=== PATIENT | female | born 1980 ===

== ENCOUNTER 2017-03-19 15:53 | Emergency (ER) | payer SELFPAY ==
[2017-03-19 16:32] VITALS: BP 120/79; PULSE 112; RESP 14; TEMP 100.1; O2SAT 100
--- NOTE | 2017-03-19 16:41 | C.PDOC ---
History Of Present Illness 36 year old female presents to the ER with a complaint of sinus congestion, runny nose, fever T-max 103, and nonproductive cough for the past 3 days. Patient also reports having nausea and vomiting that has now resolved. Denies other associated symptoms. SINUS DYLAN, RUNNY NOSE, FEVER RETURN TO [employer] COUGH X 3 DAYS. TM 103. +NV, NOW RESOLVED. DENIES OTHER ASSOC SX EXAM NARD HEENT +SINUS DYLAN CLEAR RHINORRHEA LUNGS CTA B/L NO W/R/R REMAINDER NEG Time Seen by Provider: 03/19/17 16:35 Chief Complaint (Nursing): Fever History Per: Patient History/Exam Limitations: no limitations Onset/Duration Of Symptoms: Days Current Symptoms Are (Timing): Still Present Location Of Pain: None Sick Contacts (Context): None Associated Symptoms: Fever, Cough, Sinus Drainage, Nasal Congestion, Nausea, Vomiting. denies: Sputum Ear Symptoms: Bilateral: None Recent travel outside of the [place]: No Past Medical History Reviewed: Historical Data, Nursing Documentation, Vital Signs Vital Signs: Last Vital Signs Temp 100.1 F H 03/19/17 16:29 Pulse 112 H 03/19/17 16:29 Resp 14 03/19/17 16:29 BP 120/79 03/19/17 16:29 Pulse Ox 100 03/19/17 16:41 Family History: States: Unknown Family Hx - Social History Hx Alcohol Use: No Hx Substance Use: No - Immunization History Hx Influenza Vaccination: No Hx Pneumococcal Vaccination: No Review Of Systems Constitutional: Positive for: Fever ENT: Positive for: Nose Discharge, Nose Congestion. Negative for: Ear Pain, Ear Discharge, Throat Pain Respiratory: Positive for: Cough. Negative for: Sputum Gastrointestinal: Positive for: Nausea, Vomiting. Negative for: Abdominal Pain Physical Exam - Physical Exam Appears: Non-toxic, No Acute Distress Skin: Normal Color, Warm, Dry Head: Atraumatic, Normacephalic Eye(s): bilateral: Normal Inspection Ear(s): Bilateral: Normal Nose: Discharge (Clear), Other (Positive sinus congestion) Oral Mucosa: Moist Throat: Normal, No Erythema, No Exudate Neck: Normal, Supple Chest: Symmetrical, No Tenderness Cardiovascular: Rhythm Regular Respiratory: Normal Breath Sounds, No Rales, No Rhonchi, No Wheezing Neurological/Psych: Oriented x3, Normal Speech ED Course And Treatment O2 Sat by Pulse Oximetry: 100 (Room air) Pulse Ox Interpretation: Normal Disposition Counseled Patient/Family Regarding: Diagnosis, Need For Followup, Rx Given - Disposition Referrals: YOUR,PMD [Other] Disposition: HOME/ ROUTINE Disposition Time: 16:40 Condition: GOOD Prescriptions: Ondansetron [Zofran Odt] 4 mg PO TID PRN #9 odt PRN Reason: Nausea/Vomiting Instructions: Upper Respiratory Infection (ED), Rhinosinusitis (ED) Forms: [employer] (Czech), Work Excuse - Clinical Impression Clinical Impression: Upper respiratory infection, viral - Scribe Statement The provider has reviewed the documentation as recorded by the Scribtyra Hickey All medical record entries made by the Dulceibtyra were at my direction and personally dictated by me. I have reviewed the chart and agree that the record accurately reflects my personal performance of the history, physical exam, medical decision making, and the department course for this patient. I have also personally directed, reviewed, and agree with the discharge instructions and disposition.
== END 2017-03-19 17:00 | disposition home or self-care (01) ==
LOC: C.ER 15:53
DX: J06.9 Acute upper respiratory infection, unspecified (principal); B34.9 Viral infection, unspecified